=== PATIENT | female | born 1985 | race Two or more races ===

== ENCOUNTER 2024-11-26 09:05 | Day surgery (SDC) | payer MEDICAID, SELFPAY ==
[2024-11-24 09:18] VITALS: BMI 31.7
[2024-11-24 10:06] LABS: Basophils % (Auto) 0 % (0-2.5); Eosinophils # (Auto) 0.1 Thou/mm3 (0.0-0.5); Eosinophils % (Auto) 1 % (0-10); Hematocrit 39.7 % (36.0-46.0); Hemoglobin 13.3 g/dL (12.0-16.0); Immature Granulocytes % (Auto) 0 % (0-0); Immature Granulocytes Auto 0.01 Thou/mm3 (0.00-0.00); Lymphocytes # (Auto) 1.6 Thou/mm3 (1.0-4.8); Lymphocytes % (Auto) 18 % (10-50); Mean Corpuscular HGB Conc 33.5 g/dl (31.0-37.0); Mean Corpuscular Hemoglobin 29.3 pg (25.0-35.0); Mean Corpuscular Volume 87 fL (80-100); Monocytes # (Auto) 0.7 Thou/mm3 (0.0-0.8); Monocytes % (Auto) 8 % (0-12); Neutrophils # (Auto) 6.6 Thou/mm3 (1.8-7.7); Neutrophils % (Auto) 73 % (37-80); Nucleated Red Blood Cell % 0 /100 WBC (0); Platelet Count 282 Thou/mm3 (140-440); RDW Standard Deviation 41.9 fL (36.4-46.3); Red Blood Count 4.54 Miln/mm3 (4.00-5.20); White Blood Count 9.1 Thou/mm3 (3.6-11.0)
[2024-11-24 10:19] LABS: HCG,Qualitative Serum Negative
[2024-11-24 11:02] LABS: Hepatitis A Antibody IgM Non Reactive (Non React); Hepatitis B Core Antibody IgM Non Reactive (Non React); Hepatitis B Surface Antigen Non Reactive (Non React); Hepatitis C Antibody Non Reactive (Non React)
[2024-11-24 16:32] LABS: HIV (1&2) Antibody Rapid Non-Reactive
[2024-11-26 09:41] VITALS: BP 142/83; PULSE 73; RESP 14; TEMP 36.2; O2SAT 99; BMI 31.5
--- NOTE | 2024-11-26 11:04 | PD.GYNHP ---
Documentation for date of: 11/26/24 ORAL SURGERY ASSISTANT - HPI History of Present Illness History of present illness: Ms. BUSH is a 39 year old female para 3 admitted for a cervical conization. 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 Patient was given a choice of treatment versus colposcopy and the patient opted colposcopy. Colposcopy biopsy confirmed 12:00 lesion of KIARRA-2. Meds Home Medications and Allergies Home Medications ?Medication ?Instructions ?Recorded ?Confirmed ?Type No Known Home Medications 11/24/24 11/24/24 History Allergies Allergy/AdvReac Type Severity Reaction Status Date / Time No Known Allergies Allergy Verified 11/24/24 09:23 Exam - ORAL SURGERY ASSISTANT Vital Signs Temp Pulse Resp BP Pulse Ox 97.2 F 73 14 142/83 H 99 11/26/24 09:41 11/26/24 09:41 11/26/24 09:41 11/26/24 09:41 11/26/24 09:41 Constitutional Constitutional: no acute distress Routine HEENT Exam Head: Present normocephalic and atraumatic Eye: Present EOMI and PERRL ENT: Present mucous membranes moist Routine Neck Exam Neck: Present supple and trachea midline Routine Respiratory Exam Respiratory: Present chest non-tender, lungs clear, normal breath sounds and no resp distress Routine Cardiovascular Exam Cardiovascular: Present RRR Routine Abdominal Exam Abdominal: Present soft and normoactive bowel sounds Routine Extremities Exam Extremities: Present full ROM Routine Skin Exam Skin: Present intact and dry Routine Neurological Exam Neurological: Present alert, oriented X3 and CN II-XII intact Routine Psychiatric Exam Psychiatric: Present normal affect and normal thought process ORAL SURGERY ASSISTANT - Results Labs 11/24/24 09:40 Impressions Impression: 39-year-old para 3 admitted for cervical conization KIARRA-2 at 12:00 Patient is aware of risk of margins being positive and requiring additional intervention All questions answered Quality Measures Quality Measures VTE prophylaxis
[2024-11-26 12:05] VITALS: BP 125/89; PULSE 79; RESP 16; TEMP 36.1; O2SAT 97
--- NOTE | 2024-11-26 12:05 | SUR.PHASEI ---
pt arrived to PACU via gurney drowsy but arouses to voice, breathing unlabored, peripad in place-clean and dry. Report from Adiel HAAS, and Dr Naylor
[2024-11-26 12:20] VITALS: BP 124/86; PULSE 72; RESP 19; TEMP 36.3; O2SAT 97
[2024-11-26] MEDS: fentaNYL CIT INJ 50 mCg/ML AMP 2ML 25 MCG IV ×2 (12:28→12:35)
[2024-11-26 12:35] VITALS: BP 129/90; PULSE 62; RESP 16; TEMP 36.3; O2SAT 97
[2024-11-26 12:50] VITALS: BP 132/92; PULSE 63; RESP 14; TEMP 36.4; O2SAT 96
--- NOTE | 2024-11-26 13:10 | SUR.PHASEII ---
pt awake, alert, able to follow commands, breathing unlabored, peripad clean, dry, and intact, discharge instructions given with spouse present, all questions answered, pt and spouse verbalize understanding of discharge instructions, pt discharged via wheelchair with all belongings and copies of discharge paperwork.
--- NOTE | 2024-12-03 07:48 | PD.GYNPROC ---
Operative Note - PROTECTIVE SIGNAL REPAIRER Procedure Date of procedure: 11/26/24 Procedure Performed: Cervical conization Indication: High-grade squamous intraepithelial lesion at 12 o'clock position on colposcopy Pre-Op diagnosis: KIARRA-2 Post-Op diagnosis: Same Anesthesia type: General Procedure description: The patient was taken back to the operating room and prepped and draped in a sterile fashion. General anesthesia was deemed to be adequate. A time-out was performed to confirm correct patient and correct procedure. The patient was then positioned on the operating room in the dorsolithotomy position. A bimanual examination was performed and the uterus was noted to be small, anteverted in size yet mobile. The cervix was visualized with the aid of a Sloan. We performed endocervical currettage. With annalisa nunez. Local anesthesia with dilute Lidocaine with epinephrine was injected circumferentially around the cervix to aid in hemostasis. Utilizing 0 Vicryl we suture ligated the cervix at 3 and 9 o'clock positions to aid in decreased bleeding to ligate the cervical branch of the uterine arteries. Once the cervix was visualized to be pale, with a scalpel were able to circumferentially remove a cone specimen of the cervix, again prior to excising that cone, we placed a Hegar dilator to protect our margins. Once the cone specimen was removed. Minimal amount of bleeding was noted. We controlled that with ball electrocautery and munsol solution. We then deemed the procedure complete. Hemostasis was obtained. We removed the speculum as well as the Sloan. Sponge, lap and instrument counts were correct x2. The patient was transferred to the recovery room in stable condition Estimated blood loss (ml): 5 Complications: none Surgical staff Operation Date: 11/26/24 11:00 Case Staff Anesthesiologist: Grayson Naylor Diagnosis Problem List Completed Was Problem List Reviewed/Reconciled?: Yes
== END 2024-11-26 13:10 | disposition home or self-care (01) ==
PROVIDERS: PCP Family Medicine; Referring Provider Student in an Organized Health Care Education/Training Program; Visit Provider Student in an Organized Health Care Education/Training Program
PROC: 0UBC7ZZ Excision of Cervix, Via Natural or Artificial Opening (ICD-10-PCS; CPT 57522; principal; 2024-11-26 10:45)
DX: N87.9 Dysplasia of cervix uteri, unspecified (principal)
CPT/HCPCS: 57522; 36415; 80074; 84703; 85025; 86703; 86850; 86900; 86901; A4217; A4649; J0690; J1885; J2250; J2405; J2704; J2765; J3010; J3490; J2598